=== PATIENT | female | born 1955 | race African-American/Black ===

== ENCOUNTER → 2019-10-07 | Day surgery (SDC) | payer OTHER ==
[2019-10-02 16:54] LABS: BASOPHILS # (AUTO) 0.1 (0.0-0.1); BASOPHILS % 1.2 % (0.0-1.0); EOSINOPHILS # (AUTO) 0.9 (0.0-0.4); EOSINOPHILS % 9.3 % (0.0-6.0); HEMATOCRIT 40.5 % (34.2-44.1); HEMOGLOBIN 12.9 g/dL (12.0-16.0); LYMPHOCYTES # (AUTO) 2.4 (1.0-3.2); LYMPHOCYTES % 25.5 % (18.0-39.1); MEAN CORPUSCULAR HEMOGLOBIN 32.1 pg (28-32); MEAN CORPUSCULAR HGB CONC 31.9 g/dL (31-35); MEAN CORPUSCULAR VOLUME 100.7 fL (81-99); MONOCYTES # (AUTO) 0.9 (0.2-0.8); MONOCYTES % 9.3 % (4.4-11.3); NEUTROPHILS # (AUTO) 5.1 (2.1-6.9); NEUTROPHILS % 54.4 % (38.7-80.0); PLATELET COUNT 347 x10e3/uL (140-360); RED BLOOD COUNT 4.02 x10e6/uL (3.6-5.1); RED CELL DISTRIBUTION WIDTH 14.2 % (11.7-14.4)
[2019-10-02 17:02] LABS: INR 0.81; PROTHROMBIN TIME 11.7 seconds (11.9-14.5)
[2019-10-02 17:03] LABS: PARTIAL THROMBOPLASTIN TIME 22.1 seconds (23.8-35.5)
[2019-10-02 17:04] LABS: ANION GAP 12.7 mmol/L (8-16)
[2019-10-02 17:23] LABS: POTASSIUM 2.7 mmol/L (3.5-5.1)
[~2019-10-07] MED LIST: ACETAMINOPHEN 1000 MG/100 ML 100 ML IV ONE; ACETAMINOPHEN 1000 MG/100 ML IV ONE; ACETAMINOPHEN325 M1 PO; ALEVE220 M1 PO; ATROPINE SULFATE 1 MG/ML VIAL ONE; BACITRACIN 50,000 UNIT VIAL ONE; CEFAZOLIN SOD 1 GM/NS 50ML 100 ML IV ONE; DEXAMETHASONE SOD PHOS INJ 4 MG/ML VIAL ONE; HYDROCODONE/APAP 10MG-325MG TAB ONE; HYDROMORPHONE 1MG/1ML INJ ONE; IBUPROFEN 800MG/ 200ML 200 ML IV ONE; LIDOCAINE HCL 2% LOCAL INJ 5 ML SDV VIAL INJ ONE; NEOSTIGMINE 1 MG/ML 10ML VIAL ONE; ONDANSETRON HCL INJ 2MG/ML 2ML 2 MG/ML VIAL ONE; PROPOFOL IV EMULSION 10 MG/ML 20 ML VIAL ONE; ROCURONIUM BROMIDE 10 MG/ML 5ML VIAL IV ONE; ROPIVACAINE 246.25 MG, EPINEPHRINE HCL 1:1000 1ML 0.5 MG, CLONIDINE HCL 0.08 MG, KETORO... INJ ONE; SEVOFLURANE INHAL SOLN 250 ML PEN BTL ONE
[2019-10-07 06:48] LABS: ANION GAP 11.8 mmol/L (8-16); BLOOD UREA NITROGEN < 5 mg/dL (7-26); CALCIUM 9.3 mg/dL (8.4-10.2); CARBON DIOXIDE 26 mmol/L (22-29); CHLORIDE 109 mmol/L (98-107); CREATININE, SERUM 0.74 mg/dL (0.57-1.11); EST GLOMERULAR FILTRATION RATE > 60 ML/MIN (60-); GLUCOSE 99 mg/dL (74-118); POTASSIUM 3.8 mmol/L (3.5-5.1); SODIUM 143 mmol/L (136-145)
[2019-10-07 06:57] LABS: BUN/CREATININE RATIO 7 (6-25)
[2019-10-07 13:20] VITALS: BP 114/72
--- NOTE | 2019-10-07 17:15 | Operative Report ---
DATE OF PROCEDURE: 10/07/2019 SURGEON: JULY JAY MD PREOPERATIVE DIAGNOSIS: SEVERE END-STAGE DEGENERATIVE JOINT DISEASE OF THE LEFT HIP.: POSTOPERATIVE DIAGNOSIS: SEVERE END-STAGE DEGENERATIVE JOINT DISEASE OF THE LEFT HIP.: PROCEDURE: LEFT TOTAL HIP ARTHOPLASTY WITH THE FOLLOWING COMPONENTS;: ACETABULUM COMPONENT LEFT HIP.: HISTORY: Ms. Johnson is a 63-year-old female with end-stage severe degenerative joint disease of both the left and right hip with the left hip more symptomatic. The patient elected to forgo any further conservative treatment and proceed along with a left total hip arthroplasty. Risks and benefits of surgery have been outlined to her just not limited to the following; infection, blood loss, nerve, vessel or tendon injury, DVT, ongoing pain, stiffness, leg-length discrepancy, fractures, dislocations. Informed consent was obtained. The patient was seen, identified in the preoperative holding area. The left upper extremity was marked by myself with her present. The patient received a short acting spinal block anesthesia then brought back to operative suite, placed supine on the operating table. Time-out was taken for Ms. Johnson for a left total hip arthroplasty. All were in agreement including nursing staff, anesthesia and myself. The patient was then given successful general intubation anesthetic and then placed in a right lateral decubitus position with left hip fully exposed. An axillary roll was placed in the right axilla and the right lower extremity was well padded protecting the peroneal nerve throughout the entire procedure. The left hip was then sterilely prepped and draped in usual standard fashion. Time-out was taken once again for Ms. Johnson for a total hip arthroplasty of the left hip. All were in agreement including nursing staff, anesthesia and myself. The 10 Bard-Magnus blade was used to make the initial hip incision starting at the very trochanteric extending out proximally and posteriorly and then distally along the femoral shaft. The second knife was used to make an incision into the iliotibial band. A [facility] rectractor was placed in and gluteus medius and minimus were identified and resected off the bony insertion and tagged for later reapproximation. A blunt dissection was carried across the femoral head, neck and capsule. The capsulectomy was then completed and loose bodies were suctioned out. The hip was then carefully dislocated en bloc and the patient was found to have severe complete cartilage loss of the entire articular surface of the femoral head and the bony osteophyte throughout the femoral neck. An osteotomy guide was then used to resect the femoral head of possibly 1 cm above the lesser trochanter. The femoral head that was resected and removed measured to be approximately 46 mm in size. The remnant soft tissue and labrum was removed. The acetabular retractor was placed in to allow full visualization of the acetabulum. ACETABULAR COMPONENT: Upon direct visualization, the sequential reaming of the acetabulum was carried out to confirm full proper version and rotation and internal and external rotation and secondary confirmation was confirmed using C-arm fluoroscopy throughout the entire procedure. Cup was reamed up to 51 mm and a 52 mm cup was then sized, had an excellent fit circumferentially. A 52 mm E Trident II cluster cup was then packed within. Again, while maintaining of the proper version rotation as well as external and internal rotation as confirmed under direct visualization and secondary confirmation was done under fluoroscopy. Our attention was then turned to the femoral component. The acetabular component was then augmented with 2 acetabular screws 6.5 x 25 and 6.5 x 30 into the superior acetabulum. Normal component. Attention then turned to the femoral side. A Cookie cutter was then used to remove the lateral femoral cancellous bone, canal finders placed in and broaching was carried out to Press-Fit #8 stem. A trial reduction was carried out with a -3 neck given the most even and stable fit bringing the ligaments up to equal. The patient was stable in all planes and motion. Upon this time, the trail components were removed. Copious irrigation was carried out for the entire hip. First, second and final counts were found to be correct. Final components were placed in consisting of the Trident II cluster cup 52 E, the liner was MDM liner 42 mm E. The femoral stem was a secure Press-Fit size 8 stem with 132 neck angle. The insert was 28 mm x 48 mm and the head was 28 mm, -3 mm neck length. Upon range of motion testing of the final components and the patient's hip stable in all planes. There was no subluxation or dislocation was noted. Stability testing was also confirmed on the large C-arm fluoroscopy in all planes. Copious irrigation was carried out in entire hip. First, second and final counts were found to be correct. The hip was then closed in deep layers. Reattaching of the gluteus medius and minimus back to the bony insertion to bony tunnel using 5 Ethibond. The IT band was closed using 5 Ethibond and 0 Vicryl. The deep fascial layer was closed using 0 Vicryl and 2-0 Vicryl, and the skin was reapproximated with festus. The patient was placed in Xeroform compressive dressing and hip abduction pillow was applied and the patient transferred to PACU in stable condition. The patient was seen in PACU. Dressings clean and dry. Capillary refills are brisk. Pain is well controlled. The intraoperative findings were reviewed and discussed with her . The patient will be assessed after the second round of therapy. She is stable to be discharged home. Outpatient therapy will begin tomorrow. The patient discharged on Lovenox as well as [place] as well as Keflex. She is asked to follow up in [facility]opedic Clinic in 2 weeks. Dressing and wound care changes were discussed with the patient as well as her as well as nursing staff. MD ANGLE SAUER/DONTAE /[id number] [place]
== END | disposition home or self-care (01) ==
LOC: OR 05:22
PROVIDERS: ATTEND Orthopaedic Surgery
DX: M16.12 Unilateral primary osteoarthritis, left hip (principal); M70.62 Trochanteric bursitis, left hip; M54.2 Cervicalgia; M54.9 Dorsalgia, unspecified; F17.210 Nicotine dependence, cigarettes, uncomplicated; Z01.810 Encounter for preprocedural cardiovascular examination; Z01.812 Encounter for preprocedural laboratory examination; Z11.59 Encounter for screening for other viral diseases
CPT/HCPCS: 27130; 36415 ×2; 80048; 80051; 85025; 85610; 85730; 86850; 86900; 86920; 93005; 97110; 97116; 97161; C1713 ×4; C1776 ×2; J0131; J0171; J0461; J0690; J1100; J1170; J1885; J2001; J2405; J2704; J2710; J2795; U0002; 76000